=== PATIENT | female | born 1970 | race Caucasian/White ===

== ENCOUNTER → 2018-02-09 | Outpatient (CLI) | payer OTHER ==
[~2018-02-09] MED LIST: FLUO10CA7 PO; NAPR220C2 PO; PHEN30CA3 PO
[2018-02-09 11:02] LABS: BASOPHILS # (AUTO) 0.07 x10^3/uL (0-0.1); BASOPHILS % (AUTO) 1 % (0-1); EOSINOPHILS # (AUTO) 0.07 x10^3/uL (0-0.4); EOSINOPHILS % (AUTO) 1 % (1-7); LYMPHOCYTES # (AUTO) 2.03 x10^3/uL (1-3.4); LYMPHOCYTES % (AUTO) 24 % (22-44); MD NO; MEAN CORPUSCULAR HEMOGLOBIN 31.8 pg (27.0-34.8); MEAN CORPUSCULAR VOLUME 93.6 fL (80-100); MEAN PLATELET VOLUME 7.7 fL (7.4-10.4); MONOCYTES # (AUTO) 0.52 x10^3/uL (0.2-0.8); MONOCYTES % (AUTO) 6 % (2-9); NEUTROPHILS # (AUTO) 5.82 x10^3/uL (1.8-6.8); NEUTROPHILS % (AUTO) 68 % (42-75); PLATELET COUNT 383 x10^3/uL (130-400); RED BLOOD COUNT 4.54 x10^6/uL (3.82-5.3); RED CELL DISTRIBUTION WIDTH 13.1 % (9.6-15.2)
[2018-02-09 11:16] LABS: HCG UR SG 1.017 (1.003-1.030); MICROSCOPIC NOT IND
[2018-02-09 11:18] LABS: CULTURE INDICATED? NO
== END | disposition home or self-care (01) ==
LOC: STAR 09:55
PROVIDERS: ATTEND Obstetrics & Gynecology
DX: Z01.818 Encounter for other preprocedural examination (principal); N92.0 Excessive and frequent menstruation with regular cycle; N94.6 Dysmenorrhea, unspecified
CPT/HCPCS: 36415; 81003; 81025; 84702; 85025

== ENCOUNTER 2018-02-15 07:52 | Day surgery (SDC) | payer OTHER ==
[2018-02-09 10:23] VITALS: BP 168/73
[~2018-02-15] VITALS: Ht 162.6 cm; Wt 79.6 kg
[2018-02-15] MEDS ORDERED: MIDAZOLAM 1 MG/ML, 2ML ONE (08:16)
[2018-02-15] MEDS ORDERED: FENTANYL PF 100 MCG/2ML ONE (08:16)
[2018-02-15] MEDS: LACTATED RINGERS 1,000 ML IV SCH (08:53)
[2018-02-15] MEDS: ACETAMINOPHEN 500 MG TABLET PO ONE (08:53)
[2018-02-15] MEDS: OXYcodone IR 5MG TABLET PO ONE (08:53)
[2018-02-15] MEDS ORDERED: SILVER NITRATE STICK TP ONE (09:03)
[2018-02-15] MEDS ORDERED: BUPIVACAINE/PF 0.25% ONE (09:10)
[2018-02-15] MEDS ORDERED: PROPOFOL 10 MG/ML, 20ML ONE (09:17)
[2018-02-15] MEDS ORDERED: ROCURONIUM 10MG/ML,5ML ONE (09:17)
[2018-02-15] MEDS ORDERED: ONDANSETRON 2MG/ML, 2ML ONE (09:17)
[2018-02-15] MEDS ORDERED: DEXAMETHASONE 4 MG/ML, 1ML ONE (09:18)
[2018-02-15] MEDS ORDERED: OXYcodone 5 MG/5 ML ORAL.SOL UDC PO PRN (09:30)
[2018-02-15] MEDS ORDERED: HYDROmorphone 1 MG/ML, 1ML IV PRN (09:30)
[2018-02-15] MEDS ORDERED: MEPERIDINE/PF 25MG/0.5ML IVPush PRN (09:30)
[2018-02-15] MEDS ORDERED: FENTANYL PF 100 MCG/2ML IV PRN (09:30)
[2018-02-15] MEDS ORDERED: ONDANSETRON ODT 8 MG PO PRN (09:30)
[2018-02-15] MEDS ORDERED: MORPHINE SULFATE 4 MG/ML, 1ML IVPush PRN (09:30)
[2018-02-15] MEDS ORDERED: PROMETHAZINE 12.5 MG SUPP PR PRN (09:30)
== END 2018-02-15 12:00 ==
LOC: OUT 07:52
PROVIDERS: ATTEND Obstetrics & Gynecology
DX: N92.0 Excessive and frequent menstruation with regular cycle (principal); N94.6 Dysmenorrhea, unspecified; Z98.51 Tubal ligation status
CPT/HCPCS: 58563; J1100; J2250; J2405; J2704; J3010; J7120; J3490

== ENCOUNTER 2019-09-27 10:18 | Outpatient (CLI) | payer OTHER | END 2019-09-27 23:59 | disposition home or self-care (01) | LOC: CFH 10:18 | PROVIDERS: ATTEND Obstetrics & Gynecology | DX: Z12.31 Encounter for screening mammogram for malignant neoplasm of breast (principal); N64.89 Other specified disorders of breast | CPT/HCPCS: 76641; 77063; 77067 ==

== ENCOUNTER → 2020-11-17 | Outpatient (CLI) | payer BC ==
[~2020-11-17] MED LIST changes: +FLUO10CA15 PO; -FLUO10CA7 PO
== END | disposition home or self-care (01) ==
LOC: CFH 09:54
PROVIDERS: ATTEND Obstetrics & Gynecology
DX: Z12.31 Encounter for screening mammogram for malignant neoplasm of breast (principal)
CPT/HCPCS: 77063; 77067